=== PATIENT | male | born 1990 | race Caucasian/White ===

== ENCOUNTER 2019-06-30 01:06 | Emergency (ER) | payer SELFPAY ==
[~2019-06-30] VITALS: Ht 177.8 cm; Wt 90.7 kg
[2019-06-30 01:13] VITALS: BP 153/70
== END 2019-06-30 02:48 | disposition home or self-care (01) ==
LOC: ER 01:08
DX: R00.2 Palpitations (principal); F12.10 Cannabis abuse, uncomplicated; R00.0 Tachycardia, unspecified; F17.210 Nicotine dependence, cigarettes, uncomplicated

== ENCOUNTER 2019-07-03 10:06 | Emergency (ER) | payer SELFPAY ==
[~2019-07-03] VITALS: Ht 177.8 cm; Wt 90.7 kg
--- NOTE | 2019-07-03 10:13 | NUR ---
CAME IN FOR DIFFICULTY BREATHING, "LUNG AND CHEST PAIN", SINCE YESTERDAY. TO ER BED 10, HOOKED TO MONITOR, BREATHING EVEN AND UNLABORED, AWAITING MD CALDERON.
--- NOTE | 2019-07-03 10:55 | NUR ---
DR STARKS AT BEDSIDE
--- NOTE | 2019-07-03 11:57 | NUR ---
Patient discharged to home in stable condition. Written and verbal after care instructions given. Patient verbalizes understanding of instruction.
[2019-07-03 11:58] VITALS: BP 139/90
== END 2019-07-03 11:58 | disposition home or self-care (01) ==
LOC: ER 10:06
DX: R06.02 Shortness of breath (principal); R07.9 Chest pain, unspecified
CPT/HCPCS: 71045-TC

== ENCOUNTER → 2019-07-28 | Emergency (ER) | payer SELFPAY ==
[~2019-07-28] VITALS: Ht 177.8 cm; Wt 90.7 kg
[2019-07-28 10:59] VITALS: BP 136/84
== END | disposition home or self-care (01) ==
LOC: ER 10:43
DX: J40 Bronchitis, not specified as acute or chronic (principal); Z87.891 Personal history of nicotine dependence

== ENCOUNTER 2019-11-24 16:06 | Emergency (ER) | payer MEDICAID ==
[~2019-11-24] VITALS: Ht 175.3 cm; Wt 104.3 kg
[2019-11-24 16:22] VITALS: BP 142/80
== END 2019-11-24 16:48 | disposition home or self-care (01) ==
LOC: ER 16:06
DX: H66.92 Otitis media, unspecified, left ear (principal); F17.200 Nicotine dependence, unspecified, uncomplicated

== ENCOUNTER 2019-12-13 09:28 | Emergency (ER) | payer MEDICAID ==
[~2019-12-13] VITALS: Ht 175.3 cm; Wt 103.9 kg
[2019-12-13 09:44] VITALS: BP 136/82
--- NOTE | 2019-12-13 10:09 | NUR ---
Patient discharged to home in stable condition. Written and verbal after care instructions given. Patient verbalizes understanding of instruction.
== END 2019-12-13 10:10 | disposition home or self-care (01) ==
LOC: ER 09:33
DX: H66.92 Otitis media, unspecified, left ear (principal)

== ENCOUNTER 2019-12-27 09:44 | Emergency (ER) | payer MEDICAID ==
[~2019-12-27] VITALS: Ht 175.3 cm; Wt 97.1 kg
[2019-12-27 09:49] VITALS: BP 127/62
--- NOTE | 2019-12-27 10:07 | NUR ---
PATIENT A/OX4, BREATHING EVEN AND UNLABORED, NO SOB NOTED, NEEDS ATTENDED, KEPT COMFORTABLE. Patient discharged to home in stable condition. Written and verbal after care instructions given. Patient verbalizes understanding of instruction.
== END 2019-12-27 10:08 | disposition home or self-care (01) ==
LOC: ER 09:45
DX: M94.0 Chondrocostal junction syndrome [Tietze] (principal); Z60.2 Problems related to living alone

== ENCOUNTER 2019-12-27 19:18 | Emergency (ER) | payer MEDICAID ==
[~2019-12-27] VITALS: Ht 170.2 cm; Wt 95.3 kg
[2019-12-27 19:26] VITALS: BP 147/67
--- NOTE | 2019-12-27 19:38 | NUR ---
RADIOLOGY AT BEDSIDE FOR XRAY
== END 2019-12-27 20:52 | disposition home or self-care (01) ==
LOC: ER 19:18
DX: S93.491A Sprain of other ligament of right ankle, initial encounter (principal); F17.200 Nicotine dependence, unspecified, uncomplicated; Z60.2 Problems related to living alone; X50.1XXA Overexertion from prolonged static or awkward postures, initial encounter; Y93.89 Activity, other specified; Y92.89 Other specified places as the place of occurrence of the external cause; Y99.8 Other external cause status
CPT/HCPCS: 73610-TC

== ENCOUNTER 2020-01-14 17:24 | Emergency (ER) | payer MEDICAID ==
[~2020-01-14] VITALS: Ht 177.8 cm; Wt 97.5 kg
[2020-01-14 17:40] VITALS: BP 141/97
--- NOTE | 2020-01-14 18:48 | NUR ---
Patient discharged to home in stable condition. Written and verbal after care instructions given. Patient verbalizes understanding of instruction. Pt ambulatory with a steady gait w/ an aide of crutches
== END 2020-01-14 18:49 | disposition home or self-care (01) ==
LOC: ER 17:24
DX: M25.571 Pain in right ankle and joints of right foot (principal); R22.41 Localized swelling, mass and lump, right lower limb; F17.200 Nicotine dependence, unspecified, uncomplicated; Z60.2 Problems related to living alone

== ENCOUNTER 2020-11-15 11:47 | Emergency (ER) | payer MEDICAID ==
[~2020-11-15] VITALS: Ht 172.7 cm; Wt 90.7 kg
[2020-11-15 11:56] VITALS: BP 126/68
--- NOTE | 2020-11-15 12:22 | NUR ---
AT BEDSIDE FOR EVAL.
[2020-11-15] MEDS ORDERED: NAPR-1164 PO (12:34)
[2020-11-15] MEDS ORDERED: CYCL10TA9 PO (12:34)
--- NOTE | 2020-11-15 12:43 | NUR ---
Patient discharged to home in stable condition. Written and verbal after care instructions given. Patient verbalizes understanding of instruction.
== END 2020-11-15 12:44 | disposition home or self-care (01) ==
LOC: ER 11:48
DX: S33.5XXA Sprain of ligaments of lumbar spine, initial encounter (principal); F17.200 Nicotine dependence, unspecified, uncomplicated; Z60.2 Problems related to living alone; X58.XXXA Exposure to other specified factors, initial encounter; Y93.89 Activity, other specified; Y92.89 Other specified places as the place of occurrence of the external cause; Y99.8 Other external cause status

== ENCOUNTER 2022-06-02 12:43 | Emergency (ER) | payer MEDICAID ==
[~2022-06-02] VITALS: Ht 167.6 cm; Wt 95.3 kg
[~2022-06-02 12:43] MED LIST: CYCL10TA9 PO; NAPR-1164 PO
[2022-06-02 12:59] VITALS: BP 150/96
--- NOTE | 2022-06-02 13:40 | NUR ---
PT SEEN BY MD/PA FOR EVAL
[2022-06-02] MEDS ORDERED: CYCL10TA9 PO (14:14)
[2022-06-02] MEDS ORDERED: NAPR-1164 PO (14:14)
--- NOTE | 2022-06-02 14:14 | NUR ---
Patient discharged to home in stable condition. Written and verbal after care instructions given. Patient verbalizes understanding of instruction.
== END 2022-06-02 14:17 | disposition home or self-care (01) ==
LOC: ER 12:55
DX: S46.911A Strain of unspecified muscle, fascia and tendon at shoulder and upper arm level, right arm, initial encounter (principal); F17.200 Nicotine dependence, unspecified, uncomplicated; Z60.2 Problems related to living alone; Z79.899 Other long term (current) drug therapy; X58.XXXA Exposure to other specified factors, initial encounter; Y93.89 Activity, other specified; Y92.89 Other specified places as the place of occurrence of the external cause; Y99.8 Other external cause status

== ENCOUNTER 2023-02-22 11:16 | Emergency (ER) | payer MEDICAID ==
[~2023-02-22] VITALS: Ht 177.8 cm; Wt 91.2 kg
[2023-02-22] MEDS ORDERED: NYST30CR3 TP (11:26)
[2023-02-22 11:34] VITALS: BP 132/68; TEMP 98.7; O2SAT 100
== END 2023-02-22 11:38 | disposition home or self-care (01) ==
LOC: ER 11:22
DX: K13.0 Diseases of lips (principal); F17.200 Nicotine dependence, unspecified, uncomplicated; Z60.2 Problems related to living alone

== ENCOUNTER 2023-03-28 10:00 | Emergency (ER) | payer MEDICAID ==
[~2023-03-28] VITALS: Ht 177.8 cm; Wt 93.0 kg
[~2023-03-28 10:00] MED LIST changes: +NYST30CR3 TP
[2023-03-28] MEDS ORDERED: KETOROLAC TROMETHAMINE 15 MG/ML VIAL IM ONE (12:00)
[2023-03-28] MEDS ORDERED: IBUP-1955 PO (12:34)
[2023-03-28] MEDS ORDERED: METH4TAB17 PO (12:34)
[2023-03-28] MEDS ORDERED: LIDO30AD10 TP (12:34)
[2023-03-28] MEDS ORDERED: CYCL5TAB PO (12:34)
[2023-03-28] MEDS ORDERED: KETOROLAC TROMETHAMINE 15 MG/ML VIAL ONE (12:36)
[2023-03-28 12:59] VITALS: BP 142/74; TEMP 98.2; O2SAT 98
== END 2023-03-28 12:59 | disposition home or self-care (01) ==
LOC: ER 10:10
DX: M54.42 Lumbago with sciatica, left side (principal); M54.41 Lumbago with sciatica, right side; F17.200 Nicotine dependence, unspecified, uncomplicated; Z60.2 Problems related to living alone
CPT/HCPCS: 99283; 96372; J1885

== ENCOUNTER 2024-03-10 05:52 | Emergency (ER) | payer MEDICAID ==
[~2024-03-10] VITALS: Ht 177.8 cm; Wt 99.8 kg
[~2024-03-10 05:52] MED LIST changes: +CYCL5TAB PO; +IBUP-1955 PO; +LIDO30AD10 TP; +METH4TAB17 PO
[2024-03-10 06:28] VITALS: BP 142/87; TEMP 98.4
[2024-03-10 07:53] VITALS: O2SAT 97
[2024-03-10] MEDS ORDERED: FLUT16SP16 BNOSTRILS (18:53)
[2024-03-10] MEDS ORDERED: PSEU120T83 PO (18:53)
== END 2024-03-10 08:22 | disposition home or self-care (01) ==
LOC: ER 05:56
DX: R06.00 Dyspnea, unspecified (principal); F17.200 Nicotine dependence, unspecified, uncomplicated; Z79.899 Other long term (current) drug therapy; Z20.822 Contact with and (suspected) exposure to COVID-19
CPT/HCPCS: 71045-TC; 86403-TC; 87070-TC

== ENCOUNTER 2024-03-10 16:53 | Emergency (ER) | payer MEDICAID ==
[~2024-03-10] VITALS: Ht 177.8 cm; Wt 104.3 kg
[2024-03-10 17:51] VITALS: BP 134/80; TEMP 98.8; O2SAT 98
[2024-03-10] MEDS ORDERED: FLUT16SP16 BNOSTRILS (18:53)
[2024-03-10] MEDS ORDERED: PSEU120T83 PO (18:53)
[2024-03-10] MEDS ORDERED: dexAMETHasone 1 MG/ML UDC ONE (18:57)
[2024-03-10] MEDS: dexAMETHasone 1 MG/ML UDC PO ONE (19:02)
== END 2024-03-10 19:03 | disposition home or self-care (01) ==
LOC: ER 16:53
DX: J32.9 Chronic sinusitis, unspecified (principal); J02.9 Acute pharyngitis, unspecified; F17.200 Nicotine dependence, unspecified, uncomplicated; R09.81 Nasal congestion
CPT/HCPCS: 99283; J8540

== ENCOUNTER 2025-02-02 22:34 | Emergency (ER) | payer MEDICAID ==
[~2025-02-02] VITALS: Ht 177.8 cm; Wt 104.3 kg
[~2025-02-02 22:34] MED LIST changes: +FLUT16SP16 BNOSTRILS; +PSEU120T83 PO
[2025-02-03 00:33] VITALS: BP 106/82; TEMP 98.2
[2025-02-03 01:48] VITALS: O2SAT 98
== END 2025-02-03 02:04 | disposition home or self-care (01) ==
LOC: ER 22:37
DX: S61.012A Laceration without foreign body of left thumb without damage to nail, initial encounter (principal); F17.200 Nicotine dependence, unspecified, uncomplicated; W26.0XXA Contact with knife, initial encounter; Y93.89 Activity, other specified; Y92.89 Other specified places as the place of occurrence of the external cause; Y99.8 Other external cause status

== ENCOUNTER 2025-02-09 08:27 | Emergency (ER) | payer MEDICAID ==
[~2025-02-09] VITALS: Ht 177.8 cm; Wt 104.3 kg
[2025-02-09 08:37] VITALS: BP 100/70; TEMP 98.3
[2025-02-09 08:59] VITALS: O2SAT 100
== END 2025-02-09 09:00 | disposition home or self-care (01) ==
LOC: ER 08:27
DX: S61.011D Laceration without foreign body of right thumb without damage to nail, subsequent encounter (principal); Z48.02 Encounter for removal of sutures; F17.200 Nicotine dependence, unspecified, uncomplicated; X58.XXXD Exposure to other specified factors, subsequent encounter